=== PATIENT | female | born 1960 | race Caucasian/White ===

== ENCOUNTER 2018-09-04 08:24 | Inpatient (IN) | payer OTHER ==
[~2018-09-04] VITALS: Ht 152.4 cm; Wt 62.6 kg
[2018-09-04 08:45] VITALS: BP 174/95
--- NOTE | 2018-09-04 08:56 | NUR ---
PATIENT TO BED #10 WITH FAMILY
--- NOTE | 2018-09-04 09:00 | NUR ---
AMBULATE TO BED 6 BIB FAMILY WITH C/O OF ABD. PAIN AND PAINFUL URINATION X 1 WK. SEEN IN URGENT CARE LAST MONDAY AND . WITH UTI. PRESCRIBED MACROBID AND CIPRO. NO IMPROVEMENT/FEVER PER PATIENT. TOOK MOTRIN THIS MORNING. HX: HIGH CHOL. TAKING ATORVASTATION,LISINOPRIL,MACROBID AND CIPRO
[2018-09-04] MEDS ORDERED: CIPR500T4 PO (09:03)
[2018-09-04] MEDS ORDERED: ATOR40TA PO (09:03)
[2018-09-04] MEDS ORDERED: LISI2.5T12 PO (09:03)
[2018-09-04] MEDS ORDERED: NITR100C7 PO (09:03)
[2018-09-04] MEDS ORDERED: KETOROLAC 30 MG/ML VIAL IVP ONE (09:20)
[2018-09-04] MEDS ORDERED: NACL 0.9% 1,000 ML IV ONE (09:20)
[2018-09-04 09:27] LABS: APPEARANCE,URINE CLEAR (CLEAR); BILIRUBIN,URINE NEGATIVE (NEGATIVE); BLOOD, URINE NEGATIVE (NEGATIVE); COLOR,URINE YELLOW (YELLOW); LEUKOCYTE ESTERASE ,URINE NEGATIVE (NEGATIVE); NITRITE, URINE NEGATIVE (NEGATIVE); PH,URINE 5.5 (5.0-9.0); UGLUCOSE NEGATIVE (NEGATIVE)
--- NOTE | 2018-09-04 09:43 | NUR ---
PT TAKEN OFF THE UNIT FOR CT OF THE ABD VIA RICHIE BY SCRAP KETTLE TENDER ADDY
[2018-09-04 09:48] LABS: BASOPHILS % (AUTO) 0.2 % (0.0-2.0); EOSINOPHILS # (AUTO) 0.1 K/uL (0-0.4); EOSINOPHILS % (AUTO) 0.6 % (0.0-4.0); HEMATOCRIT 39.1 % (36-48); HEMOGLOBIN 12.7 g/dL (12.0-16.0); LYMPHOCYTES # (AUTO) 1.4 K/uL (2.5-16.5); MEAN CORPUSCULAR HEMOGLOBIN 27 pg (27-31); MEAN CORPUSCULAR HGB CONC 32 g/dL (33-37); MEAN CORPUSCULAR VOLUME 81.9 fL (80-94); MONOCYTES # (AUTO) 0.9 K/uL (0.8-1.0); MONOCYTES % (AUTO) 8.1 % (1.7-9.3); NEUTROPHILS # (AUTO) 9.2 K/uL (1.8-7.7); NEUTROPHILS % (AUTO) 79.1 % (42.2-75.2); PLATELET COUNT (AUTO) 286 K/uL (140-450); RED BLOOD CELL COUNT(AUTO) 4.78 MIL/uL (4.20-5.40); RED CELL DISTRIBUTION WIDTH 14.1 % (11.6-13.7); WHITE BLOOD COUNT (AUTO) 11.7 K/uL (4.8-10.8)
[2018-09-04 09:57] LABS: ANION GAP 15.4 (8-16); CARBON DIOXIDE 25.3 mmol/L (21-32); CREATININE 0.7 mg/dL (0.6-1.3); POTASSIUM 3.7 mmol/L (3.5-5.1)
--- NOTE | 2018-09-04 09:58 | NUR ---
AAO patient x4 brought back from CT via gurney, IV fluids given, placed on monitor, no acute distress noted at this time, notified if to ask for help if she needs to go the the restroom.
[2018-09-04 10:03] LABS: ALBUMIN 3.3 g/dL (3.4-5.0); TOTAL BILIRUBIN 0.4 mg/dL (0.0-1.0)
--- NOTE | 2018-09-04 10:30 | NUR ---
Patient ambulate to the restroom and back to bed 6. Placed back on monitor. VSS, will continue to monitor.
[2018-09-04] MEDS ORDERED: LEVOFLOXACIN 500 MG/D5W PREMIX 100 ML IV ONE (10:35)
[2018-09-04] MEDS ORDERED: metroNIDAZOLE 500 MG/NS PREMIX 100 ML IV ONE (10:35)
[2018-09-04] MEDS ORDERED: ONDANSETRON 4 MG/2 ML VIAL IVP PRN (11:05)
[2018-09-04] MEDS ORDERED: LORazepam 2 MG/ML VIAL IVP PRN (11:05)
[2018-09-04] MEDS ORDERED: MORPHINE SULFATE 2 MG/ML SYR IVP PRN (11:05)
[2018-09-04] MEDS ORDERED: ACETAMINOPHEN 325 MG TAB PO PRN (11:05)
[2018-09-04] MEDS ORDERED: HYDROcodone/APAP 5/325 MG 1 TAB TAB PO PRN (11:05)
--- NOTE | 2018-09-04 11:10 | NUR ---
Patient and daughter notified of pending admission. bat person/daughter's number Alejandra Clark noted on SBAR, will notified of room number when available.
--- NOTE | 2018-09-04 11:36 | NUR ---
PT TAKEN TO [facility] FLOOR BY SHMUEL DIXON VIA WHEELCHAIR
[2018-09-04 11:45] VITALS: BP 122/75
--- NOTE | 2018-09-04 11:45 | NUR ---
PATIENT ARRIVED TO THE UNIT VIA GURNEY ACCOMPANIED WITH EDGE SETTER AND HER DAUGHTER ARMINDA. AOX4. ABLE TO COMMUNICATE IN MONTSERRATIAN AND ROMANIAN. FOLLOWS COMMEND, COOPERATIVE. NO SIGNS OF DISTRESS IN RA NOTED. VITAL SIGNS ARE STABLE. PATIENT STATED SHE HAS 2/10 PAIN WITHIN HER TOLERATED PAIN LIMIT. IV ON L AC 20G, INTACT, CLEAN AND INFUSING PER MD ORDER. IV SITE INTACT, CLEAN AND DRY. ABLE TO AMBULATE WITH STEADY GAIT TO BATHROOM. INSTRUCTED PATIENT TO USE THE CALL LIGHT, TV, LIGHT. REVIEW PLAN OF CARE WITH PATIENT. PATIENT VERBALIZED UNDERSTANDING. BED IN LOW POSITION, CALL LIGHT WITHIN REACH. WILL CONTINUE TO MONITOR.
--- NOTE | 2018-09-04 11:45 | NUR ---
Patient will be admitted to care of Dr Marquez. Admited to M/S room 105a. Will go to room. Belongings list completed. Report to SHMUEL Lemus and SHMUEL Kumar Addendum: 09/04/18 at 1157 by MEDARO 500 mg Flagyl turn over to SHMUEL Lemus to be given later.
[2018-09-04] MEDS: NACL 0.9% 1,000 ML IV SCH ×2 (12:14→21:05)
--- NOTE | 2018-09-04 14:10 | NUR ---
PATIENT IS RESTING ON BED WATCHING TV. NO SIGNS OF DISTRESS NOTED. DENIES OF PAIN. WILL CONTINUE TO MONITOR.
[2018-09-04] MEDS: PIPER/TAZO 3.375GM/D5W PREMIX 50 ML IV SCH ×2 (14:55→21:30)
--- NOTE | 2018-09-04 19:15 | NUR ---
ENDORSED PATIENT TO AUTOMOTIVE WORKER FOREMAN NURSE AT BEDSIDE FOR CONTINUITY OF CARE. PATIENT IS IN STABLE CONDITION. NO SIGNS OF DISTRESSED NOTED. DAUGHTER ARMINDA IS AT BEDSIDE.
--- NOTE | 2018-09-04 19:16 | NUR ---
RECD RESTING IN BED, AWAKE, A/OX4. RESPIRATION EVEN AND UNLABORED. IV OF NS AT 100 ML/HR INFUSING, RIGHT AC G20. CONVERSING WITH VISITORS AT THE BEDSIDE. PLAN OF CARE FOR THE SHIFT DISCUSSED. VERBALIZED UNDERSTANDING. TOLERATING CLEAR LIQUID DIET. DENIES PAIN 0/10.
--- NOTE | 2018-09-04 19:16 | NUR ---
Patient's Plan of Care was discussed and reviewed with BHARATH: SPIKE.
--- NOTE | 2018-09-04 21:00 | NUR ---
AMBULATED TO TO VOID, BACK TO BED AFTER VOIDING. JELLO AND JUICES GIVEN.
--- NOTE | 2018-09-04 22:30 | NUR ---
SLEEPING COMFORTABLY IN BED.
[2018-09-04 23:09] VITALS: BP 122/65
[2018-09-05] MEDS: NACL 0.9% 1,000 ML IV SCH (03:58)
[2018-09-05] MEDS: PIPER/TAZO 3.375GM/D5W PREMIX 50 ML IV SCH ×2 (03:59→13:43)
[2018-09-05 06:28] LABS: BASOPHILS % (AUTO) 0.1 % (0.0-2.0); EOSINOPHILS # (AUTO) 0.1 K/uL (0-0.4); EOSINOPHILS % (AUTO) 1.1 % (0.0-4.0); HEMATOCRIT 36.1 % (36-48); HEMOGLOBIN 11.6 g/dL (12.0-16.0); LYMPHOCYTES # (AUTO) 1.7 K/uL (2.5-16.5); LYMPHOCYTES % (AUTO) 16.7 % (20.5-51.1); MEAN CORPUSCULAR HEMOGLOBIN 27 pg (27-31); MEAN CORPUSCULAR HGB CONC 32 g/dL (33-37); MEAN CORPUSCULAR VOLUME 82.5 fL (80-94); MONOCYTES # (AUTO) 0.8 K/uL (0.8-1.0); MONOCYTES % (AUTO) 7.2 % (1.7-9.3); NEUTROPHILS # (AUTO) 7.8 K/uL (1.8-7.7); NEUTROPHILS % (AUTO) 74.9 % (42.2-75.2); PLATELET COUNT (AUTO) 265 K/uL (140-450); RED BLOOD CELL COUNT(AUTO) 4.37 MIL/uL (4.20-5.40); RED CELL DISTRIBUTION WIDTH 14.7 % (11.6-13.7); WHITE BLOOD COUNT (AUTO) 10.5 K/uL (4.8-10.8)
[2018-09-05 07:06] LABS: ALBUMIN 2.8 g/dL (3.4-5.0); ANION GAP 10.6 (8-16); CARBON DIOXIDE 25.3 mmol/L (21-32); CREATININE 0.7 mg/dL (0.6-1.3); MAGNESIUM 1.9 mg/dL (1.8-2.4); POTASSIUM 3.9 mmol/L (3.5-5.1); TOTAL BILIRUBIN 0.4 mg/dL (0.0-1.0)
--- NOTE | 2018-09-05 07:10 | NUR ---
RECEIVED PT REPORT FROM ELEMENTARY EDUCATOR NURSE. PT IS AWAKE AND ALERT IN BED, NO S/S OF ACUTE DISTRESS OR SOB. C/O TOLERABLE ABD PAIN 10/14. PT ON ROOM AIR, SKIN IS INTACT. IV SITE NOTED ON LAC, 20 G, INFUSING NS 100 ML/HR. PT ON CLEAR LIQUID DIET AT THIS TIME. CALL LIGHT WITHIN REACH, WILL CONT TO MONITOR PT.
--- NOTE | 2018-09-05 07:10 | NUR ---
ABLE TO SLEEP WELL. CONDITION REMAIN STABLE. ENDORSED TO AM SHIFT NURSE FOR CONTINUITY OF CARE.
--- NOTE | 2018-09-05 07:53 | NUR ---
PATIENT HAS BEEN SCREENED AND CATEGORIZED MODERATE NUTRITION RISK. PATIENT WILL BE SEEN WITHIN 3-5 DAYS OF ADMISSION. 09/06/18SUKHJINDER [address]ME[address]
[2018-09-05 08:00] VITALS: BP 129/80
[2018-09-05] MEDS ORDERED: ENOXAPARIN 40 MG/0.4 ML SYR SUBQ SCH (09:00)
[2018-09-05] MEDS ORDERED: METR250T2 PO (12:42)
[2018-09-05] MEDS ORDERED: CIPR500T4 PO (12:42)
--- NOTE | 2018-09-05 17:45 | NUR ---
PT HAS DISCHARGED. PT RECEIVED DISCHARGED INSTRUCTIONS AND PRESCRIPTION, VERBALIZED UNDERSTANDING OF DC INSTRUCTIONS. IV SITE AND WRIST BANDS WERE REMOVED. PT REFUSED FLU SHOT. PT LEFT WITH ALL HER BELONGINGS IN STABLE CONDITION, WITH FAMILY.
--- NOTE | 2018-09-11 15:13 | NUR ---
CM NOTE PER BHUPINDER OF DR. JACK GOMES [facility] (PCP) PH# [phone], PATIENT IS SCHEDULED FOR OUTPATIENT FOLLOW UP APPOINTMENT ON SEPTEMBER 17, 2018 3:20PM AT THE CLINIC AT [address] [address]. ATTEMPTED TO CALL PATIENT X 6 TO GIVE HER OUTPATIENT FOLLOW UP APPOINTMENT SCHEDULE BUT NOBODY WAS PICKING UP THE CALL AND UNABLE TO LEAVE MESSAGE TO CALL BACK DUE TO MAILBOX IS FULL AND CANNOT TAKE ANY NEW MESSAGES AT THIS TIME.
--- NOTE | 2018-09-12 10:52 | NUR ---
CM NOTE SPOKE WITH PATIENT PH# [phone] AND I GAVE HER THE INFORMATION REGARDING HER OUTPATIENT FOLLOW UP APPOINTMENT AND EMPHASIZED TO HER THE IMPORTANCE OF FOLLOWING UP WITH HER PCP. PATIENT VERBALIZED UNDERSTANDING.
== END 2018-09-05 17:45 | disposition home or self-care (01) | DRG 244 ==
LOC: MED 08:24 → MTU 11:05
PROVIDERS: ADMIT Hospitalist; ATTEND Hospitalist
DX: K57.32 Diverticulitis of large intestine without perforation or abscess without bleeding (principal); E44.1 Mild protein-calorie malnutrition; Z90.710 Acquired absence of both cervix and uterus; Z68.27 Body mass index [BMI] 27.0-27.9, adult; Z79.899 Other long term (current) drug therapy; Z98.51 Tubal ligation status; Z90.89 Acquired absence of other organs; Z87.440 Personal history of urinary (tract) infections
CPT/HCPCS: 36415; 80053; 81003; 83605; 83735; 85025; 87040; 87081; 87086; 96361; 96365; 96375; 99285; J1650; J1885; J1956; J2543; J3490; J7030

== ENCOUNTER 2022-01-01 10:23 | Emergency (ER) | payer OTHER ==
[~2022-01-01] VITALS: Ht 152.4 cm; Wt 60.5 kg
[~2022-01-01 10:23] MED LIST: ATOR40TA PO; CIPR500T4 PO; LISI2.5T12 PO; METR-520 PO
[2022-01-01 10:27] VITALS: BP 171/101
--- NOTE | 2022-01-01 11:04 | NUR ---
PT AMBULATED TO BED 03.
--- NOTE | 2022-01-01 11:11 | NUR ---
61 Y/O FEMALE C/O HIGH BP & HEADACHE, WEAKNESS X 10 DAYS. PT BLOOD SUGAR 107, BP 171/101 AT THIS TIME. PT WENT TO URGENT CARE 3 DAYS AGO & GOT AMLODIPINE, CETIRIZINE. DENIES FEVER/CHILLS. DENIES N/V/D. PMH: HTN, DM NKA
--- NOTE | 2022-01-01 11:43 | NUR ---
DR. CHIANG AT PT BEDSIDE FOR FURTHER EVALUATION.
[2022-01-01] MEDS ORDERED: KETOROLAC 60 MG/2 ML VIAL IM ONE (11:50)
[2022-01-01] MEDS ORDERED: IBUP-2213 PO (12:09)
[2022-01-01 12:17] VITALS: BP 154/84
--- NOTE | 2022-01-01 12:18 | NUR ---
Patient discharged with v/s stable. Written and verbal after care instructions given FOR HIGH BLOOD PRESSURE and explained. Patient verbalized understanding. Ambulatory with steady gait. All questions addressed prior to discharge. Advised to follow up with PMD.
== END 2022-01-01 12:18 | disposition home or self-care (01) ==
LOC: MED 10:23
DX: I10 Essential (primary) hypertension (principal); R51.9 Headache, unspecified; E11.9 Type 2 diabetes mellitus without complications; Z98.890 Other specified postprocedural states; Z79.899 Other long term (current) drug therapy; Z79.2 Long term (current) use of antibiotics
CPT/HCPCS: 81002; 96372; 99283; J1885